=== PATIENT | female | born 1965 | race Caucasian/White ===

== ENCOUNTER 2020-02-04 08:30 | Day surgery (SDC) | payer OTHER ==
[~2020-02-04] VITALS: Ht 170.2 cm; Wt 99.0 kg
[~2020-02-04 08:30] MED LIST: ADULT ASPIRIN R81 MG PO; BREO ELLIPTA I1 EACH INH; LIPITOR20 MG PO; LISINOPRIL30 MG PO; METOPROLOL SUCC50 MG PO
--- NOTE | 2020-02-04 10:08 | NUR ---
02/04/20 1007 Unique Ernst 1003 PATIENT ARRIVES TO PACU AWAKE BUT DROWSY. SLEEPING WHEN NOT STIMULATED. RESP EVEN AND UNLABORED, OXYGEN TURNED OFF. PATIENT SNORING WHEN SLEEPING. AWAKENS WITH VERBAL STIMULI, REPOSITIONS SELF TO BACK THEN BACK TO SLEEP. 1007 PATIENT DESATS TO 89% ON ROOM AIR WHEN NOT STIMULATED. OXYGEN VIA NC BACK ON AT 2 LITERS.
--- NOTE | 2020-02-05 06:29 | OR ---
[facility] [address] [place], [place] [address] Signed DATE OF OPERATION: 02/04/2020 SURGEON: Sweetie Martinez MD PREOPERATIVE DIAGNOSES: 1. Change in bowel habits with increased frequency and number of stools. 2. History of hyperplastic colorectal polyps in 2014. 3. History of chronic diarrhea/loose stools. POSTOPERATIVE DIAGNOSIS: Three mm rectal polyps x4. PROCEDURE: Colonoscopy with hot biopsies and random cold biopsies. ESTIMATED BLOOD LOSS: None. INDICATIONS: Radha is a 54-year-old female asked to see me for a colonoscopy. She has had a change in bowel habits with increase in frequency of her bowel movements. Normally, she has one stool a day. She is not having for 4 or 5 each day. She says they are fairly soft and loose. She had a colonoscopy with Dr. Christensen back in 2013. She was having some diarrhea back then. She had several hyperplastic polyps removed in the distal sigmoid colon and rectum. Biopsies from the colon and the terminal ileum were all negative. There was no diverticulosis. She has no family history of colon cancer or polyps or inflammatory bowel disease. In the office, I gave her a pamphlet on colonoscopy and we looked at that together along with the risks including, but not limited to gas bloating, crampy abdominal pain, bleeding, perforation requiring surgery, and missed diagnosis. We also discussed the need for IV conscious sedation. She had expressed understanding and wished to proceed. PROCEDURE NOTE: Radha was taken into our endoscopy suite and placed in the left lateral decubitus position. She was given IV sedation with 8 mg of Versed and 175 mcg of fentanyl to cover the case. A digital rectal exam was performed and this was unremarkable. The adult colonoscope was introduced and advanced all around into the cecum under direct visualization of the camera. It took a while to get through the sigmoid colon due to the angulation and some redundancy. That took extra sedation and abdominal compression. After that, the scope passed fairly readily into the cecum itself. We could easily see Electronically Signed By: SWEETIE MARTINEZ MD 02/05/20 0629 PATIENT NAME: RADHA MARTÍNEZ OPERATIVE REPORT DATE OF : 61 REPORT #: [id number] PHYSICIAN: SWEETIE MARTINEZ MD PCP: ARIELLE VERMA NP REPORT IS CONFIDENTIAL AND NOT TO BE RELEASED WITHOUT AUTHORIZATION [address] [address] Signed the appendiceal orifice and ileocecal valve. Her prep was quite excellent. The scope was slowly withdrawn. We took pictures throughout for photodocumentation. We took a couple of random biopsies in the left colon because of this history of loose stool and diarrhea. We could see previous polypectomy scars in her mid to distal sigmoid colon. Similarly, we saw polypectomy scars in the rectum. No evidence of any recurrent polyps near the scars. However, she did have 4 small hyperplastic appearing polyps in her rectum which were easily removed with the help of hot biopsy forceps. Upon retroflexion of scope, there was really no additional evidence of any pathology noted above the anal canal. She has some very minimal internal hemorrhoid tissue. After this, the gas was suctioned out and the colonoscope removed. Radha tolerated the procedure quite well. RECOMMENDATIONS: I will see Radha back in my office in 7 to 14 days to review her results. If the biopsies are negative, she would come every 10 years. Sweetie Martinez MD ALB/MODL /[id number] cc: REFUGIO Maria MD Copies: SWEETIE MARTINEZ MD ~ Electronically Signed By: SWEETIE MARTINEZ MD 02/05/20 0629 PATIENT NAME: RADHA MARTÍNEZ OPERATIVE REPORT DATE OF : 61 REPORT #: [id number] PHYSICIAN: SWEETIE MARTINEZ MD PCP: ARIELLE VERMA NP REPORT IS CONFIDENTIAL AND NOT TO BE RELEASED WITHOUT AUTHORIZATION
--- NOTE | 2020-02-05 12:51 | PATH ---
[facility] [address] [place], [place] [address] Signed SPECIMEN(S): A RECTAL POLYP SPECIMEN(S): B COLON BIOPSY SPECIMEN SOURCE: A. RECTAL POLYP B. COLON BIOPSY CLINICAL HISTORY: Colonoscopy. History of hyperplastic rectal and sigmoid polyps. MICROSCOPIC DESCRIPTION: Histologic sections of all submitted blocks are examined by light microscopy. These findings, together with the gross examination, support the pathologic diagnosis. FINAL PATHOLOGIC DIAGNOSIS: A. Rectum, polyp, polypectomy: - Fragments of cauterized hyperplastic polyp. - Negative for dysplasia or malignancy. B. Colon, biopsy: - Fragments of colonic mucosa with no histopathologic abnormality. - Negative for active, chronic, or microscopic colitis. - Negative for dysplasia or malignancy. NAL:cml:C2NR GROSS DESCRIPTION: Two specimens are received in two containers, labeled "DR." A. The specimen, labeled "DR, rectal polyp," is received in formalin and consists of three burk soft tissue fragments that measure 0.1-0.2 cm in greatest dimension. The specimen is entirely submitted in cassette (A1). B. The specimen, labeled "DR, colon biopsy," is received in formalin and consists of two burk soft tissue fragments that measure 0.2 cm in greatest dimension. The specimen is entirely submitted in cassette (B1). JS (under the direct supervision of a pathologist) The Gross Description was prepared using a voice recognition system. The report was reviewed for accuracy; however, sound-alike word errors, addition and/or deletions may occur. If there is any question about this report, please contact Client Services. PERFORMING LABORATORY: PATIENT NAME: RADHA MARTÍNEZ PATHOLOGY DATE OF : 61 REPORT #: [id number] PHYSICIAN: TERE DE LA ROSA PCP: ARIELLE VERMA NP REPORT IS CONFIDENTIAL AND NOT TO BE RELEASED WITHOUT AUTHORIZATION [facility] [address] [place] [address] Signed The technical component was [place] [address] (Rotor Coil Taper: Kiley Cordova MD; CLIA# [id number]). Professional interpretation was performed by [facility], [address] [address] (CLIA# [id number]). Diagnostician: Samantha Ovalle MD Pathologist Electronically Signed 02/05/2020 Copies: ~ PATIENT NAME: RADHA MARTÍNEZ PATHOLOGY DATE OF : 61 REPORT #: [id number] PHYSICIAN: TERE DE LA ROSA PCP: ARIELLE VERMA NP REPORT IS CONFIDENTIAL AND NOT TO BE RELEASED WITHOUT AUTHORIZATION
== END 2020-02-04 10:35 | disposition home or self-care (01) ==
LOC: OPS 08:30 → DS 09:45 → OPS 09:45
PROVIDERS: ATTEND Colon & Rectal Surgery
PROC: 0DBE8ZX Excision of Large Intestine, Via Natural or Artificial Opening Endoscopic, Diagnostic (ICD-10-PCS; 2020-02-04)
PROC: 0DBP8ZZ Excision of Rectum, Via Natural or Artificial Opening Endoscopic (ICD-10-PCS; principal; 2020-02-04 09:45)
DX: K62.1 Rectal polyp (principal); I10 Essential (primary) hypertension; J44.9 Chronic obstructive pulmonary disease, unspecified; E78.5 Hyperlipidemia, unspecified; F17.210 Nicotine dependence, cigarettes, uncomplicated; Z86.010 Personal history of colon polyps; Z23 Encounter for immunization; Z79.899 Other long term (current) drug therapy; Z79.82 Long term (current) use of aspirin
CPT/HCPCS: 90686; 99153; G0500; J2250; J3010; J7121

== ENCOUNTER 2020-03-09 07:05 | Day surgery (SDC) | payer OTHER ==
[~2020-03-09] VITALS: Ht 170.2 cm; Wt 100.0 kg
--- NOTE | 2020-03-09 09:29 | NUR ---
03/09/[address] 0910- PT ARRIVES TO PACU SLEEPY, ORAL AIRWAY IN PLACE, JAW THRUST PERFORMED. 914- PT STILL SLEEPY, ORAL AIRWAY IN PLACE, JAW THRUST PERFORMED, ICE PACK APPLIED TO ABDOMEN. 919- PT RESPONSIVE, ORAL AIRWAY REMOVED. PT DENIES PAIN OR NAUSEA. PILLOW PROVIDED TO BRACE ABDOMEN.
--- NOTE | 2020-03-09 10:06 | NUR ---
PT SPOUSE WAITING IN PERSONAL VEHICLE IN HOSPITAL PARKING LOT NOTIFIED OF PT STATUS AND PLANS TO COME TO PT ROOM.
--- NOTE | 2020-03-09 10:15 | NUR ---
PT ARRIVES TO DS RM 5 FROM PACU AWAKE. PT RATES PAIN 5/10 AND DENIES ANY NAUSEA. PT HAS WATER IN HAND AND IS TOLERATING SMALL SIPS WELL. PT HAS PILLOW OVER ABD AND IS PRACTICING BRACING WITH DEEP BREATHING AND COUGHING. SCD'S IN PLACE AND PUMPING. PT SPOUSE AT BEDSIDE, CALL LIGHT WITHIN REACH.
[2020-03-09] MEDS ORDERED: NORCO 10-325 T1 EACH PO (10:49)
--- NOTE | 2020-03-09 11:04 | NUR ---
PATIENT IS UP TO THE BATHROOM WITH MY STANDBY. SHE AMBULATES WELL AND DENIES DIZZINESS. MORE ICED WATER IS GIVEN. PATIENT FEELS SHE EMPTIED HER BLADDER. SHE IS BACK IN BED. CALL LIGHT IS WITHIN REACH.
--- NOTE | 2020-03-09 11:21 | NUR ---
PT RESTING IN BED CONVERSING WITH SPOUSE AT BEDSIDE. PT RATES PAIN 6/10 IN ABD AND WOULD LIKE SOMETHING FOR PAIN; SEE EMAR. PT DENIES ANY NAUSEA AND DECLINES ANTHING ELSE TO EAT, TOLERATED CRACKERS WELL. CALL LIGHT WITHIN REACH.
--- NOTE | 2020-03-09 11:50 | NUR ---
PT UP TO BATHROOM WITH RN AND SPOUSE ASSIST, AMBULATES WITH STEADY GAIT. PT BACK TO BED WITH ICE OVER INCISION. PT CONT TO USE PILLOW TO CDB. SPOUSE AT BEDSIDE.
--- NOTE | 2020-03-09 12:00 | NUR ---
PT DRESSES SELF WITH SPOUSE IN ROOM, ENC TO OPEN CURTIAN WHEN FINISHED. DC INSTRUCTIONS GIVEN IN PRESENCE OF PT AND SPOUSE, ALL QUESTIONS ADDRESSED. PT DC VIA WC TO PERSONAL VEHICLE HOME WITH SPOUSE.
--- NOTE | 2020-03-09 13:07 | OR ---
[facility] [address] [place], [place] [address] Signed DATE OF OPERATION: 03/09/2020 SURGEON: Sweetie Martinez MD PREOPERATIVE DIAGNOSIS: Incarcerated umbilical hernia (1 cm). POSTOPERATIVE DIAGNOSIS: Incarcerated umbilical hernia (1 cm). PROCEDURE: Umbilical herniorrhaphy with intraabdominal Ventralex mesh (6.4 cm). ESTIMATED BLOOD LOSS: None. INDICATIONS: Radha is a 54-year-old female, who had come to me for her colonoscopy. She also pointed out a symptomatic incarcerated umbilical hernia. She said she had been coughing the week prior and noticed a significant amount of pain at the umbilicus. She has been unable to push it back inside. In the office, I gave her a pamphlet on hernias. We looked through it page by page. She understands the nature of an umbilical hernia along with the difference between a primary suture repair and a mesh repair. She also understands expected intraop and postop course. We did review the risks including, but not limited to bleeding, infection, scarring, change in contour of the skin, damage to bowel, infection of mesh requiring removal, recurrent hernias, and chronic pain. She had expressed understanding and wished to proceed. DESCRIPTION OF PROCEDURE: I met with Radha and her in our preop area. We all agreed on the umbilical hernia repair. After this, Radha was taken into the operating room and placed in the supine position under general endotracheal tube anesthesia. She was given preoperative antibiotics along with subcutaneous heparin. SCDs were utilized. She was then prepped and draped in the usual sterile fashion. A standard transverse infraumbilical incision was made, carried down around the umbilicus bluntly and with the cautery. We the umbilical skin from the fascia with the help of the cautery. The herniated omentum was reduced into the abdomen. The fascial defect was about a centimeter in diameter. We therefore chose our 6.4 cm round Ventralex mesh. We placed it inside the abdomen, brought up, flushed against posterior abdominal wall. We closed the fascial defect transversely with a running #1 Prolene suture. Several passes of the suture went Electronically Signed By: SWEETIE MARTINEZ MD 03/09/20 1307 PATIENT NAME: RADHA MARTÍNEZ OPERATIVE REPORT DATE OF : 61 REPORT #: [id number] PHYSICIAN: SWEETIE MARTINEZ MD PCP: ELYSSA VERMA NP REPORT IS CONFIDENTIAL AND NOT TO BE RELEASED WITHOUT AUTHORIZATION [facility] [address] [place] [id number] Signed through the tab on the mesh to hold it in place. The tab was cut and flushed with the abdominal wall and discarded. Local anesthetic was injected in the abdominal wall and subcutaneous tissues. The wound was irrigated and suctioned out until clear. The umbilical skin was held down the midline fascia with an interrupted 2-0 PDS suture. The dermis was reapproximated with interrupted 3-0 subcuticular Monocryl sutures. The skin edges were reapproximated with a running 5-0 fast absorbing plain gut suture. Dry gauze and tape were then applied. Radha was awakened from anesthesia, extubated in the OR, and taken to the recovery room in stable condition. Sweetie Martinez MD ALB/MODL /[id number] cc: MD Elyssa Theodore NP Copies: SWEETIE MARTINEZ MD, ANGIE L NP ~ Electronically Signed By: SWEETIE MARTINEZ MD 03/09/20 1307 PATIENT NAME: RADHA MARTÍNEZ OPERATIVE REPORT DATE OF : 61 REPORT #: [id number] PHYSICIAN: SWEETIE MARTINEZ MD PCP: ELYSSA VERMA NP REPORT IS CONFIDENTIAL AND NOT TO BE RELEASED WITHOUT AUTHORIZATION
== END 2020-03-09 12:15 | disposition home or self-care (01) ==
LOC: DS 07:05
PROVIDERS: ATTEND Colon & Rectal Surgery
PROC: 0WUF0JZ Supplement Abdominal Wall with Synthetic Substitute, Open Approach (ICD-10-PCS; principal; 2020-03-09 08:15)
DX: K42.0 Umbilical hernia with obstruction, without gangrene (principal); I10 Essential (primary) hypertension; J44.9 Chronic obstructive pulmonary disease, unspecified; E78.5 Hyperlipidemia, unspecified; K21.9 Gastro-esophageal reflux disease without esophagitis; F17.210 Nicotine dependence, cigarettes, uncomplicated; Z79.899 Other long term (current) drug therapy; Z79.82 Long term (current) use of aspirin
CPT/HCPCS: 00750; C1781; J0690; J1100; J1644; J1885; J2001; J2405; J2704; J3010; J7121